=== PATIENT | female | born 1995 | race Asian ===

== ENCOUNTER 2023-10-08 15:45 | Outpatient (CLI) | payer BC, SELFPAY | END 2023-10-08 15:46 | disposition home or self-care (01) | PROVIDERS: Visit Provider Advanced Practice Midwife | DX: R53.83 Other fatigue (principal); Z31.69 Encounter for other general counseling and advice on procreation | CPT/HCPCS: 82306; 84443 ==

== ENCOUNTER 2024-05-11 10:52 | Outpatient (CLI) | payer BC, SELFPAY | END 2024-05-11 10:53 | disposition home or self-care (01) | PROVIDERS: Visit Provider Obstetrics & Gynecology | DX: O20.9 Hemorrhage in early pregnancy, unspecified (principal) | CPT/HCPCS: 84702; 86850; 86900; 86901 ==

== ENCOUNTER 2024-05-13 16:13 | Outpatient (CLI) | payer BC, SELFPAY | END 2024-05-13 16:14 | disposition home or self-care (01) | LOC: NFLDREF 05-14 08:29 | PROVIDERS: Visit Provider Obstetrics & Gynecology | DX: O20.9 Hemorrhage in early pregnancy, unspecified (principal) | CPT/HCPCS: 84702 ==

== ENCOUNTER 2024-08-07 07:59 | Outpatient (CLI) | payer BC, SELFPAY ==
--- NOTE | 2024-08-07 08:15 | CRLHL7_ITS ---
For Patients: As a result of the Century Cures Act, medical imaging exams and procedure reports are released immediately into your electronic medical record. You may view this report before your referring provider. If you have questions, please contact your health care provider. INDICATION: First trimester scan, establish dates. TECHNIQUE: Real-time larry-scale imaging of the pelvis was performed. FINDINGS: Sonographic imaging demonstrates a single living intrauterine gestation. The embryo demonstrates a regular cardiac rate measuring 167 beats per minute. The embryo`s crown-rump length measurement of 1.8 cm corresponds to a gestational age of 8 weeks 2 days with a sonographic due date of 03/17/2025 . There is a normal-appearing yolk sac. Right ovarian corpus luteum cyst. IMPRESSION: Normal first trimester OB ultrasound exam. Gestational age calculated at 8 weeks 2 days with a sonographic due date of 03/17/2025 . Dictated by Faiza Villa MD @ 08/07/2024 1:20:42 PM (Electronically Signed)
== END 2024-08-07 08:00 | disposition home or self-care (01) ==
PROVIDERS: Visit Provider Advanced Practice Midwife
DX: Z34.91 Encounter for supervision of normal pregnancy, unspecified, first trimester (principal); Z3A.08 8 weeks gestation of pregnancy
CPT/HCPCS: 76817; 83021; 86592; 86703; 86704; 86706; 86762; 86787; 86803; 86850; 86900; 86901; 87086; 87340; 87491; 87591

== ENCOUNTER 2024-10-29 12:57 | Outpatient (CLI) | payer BC, SELFPAY ==
--- NOTE | 2024-10-29 13:00 | CRLHL7_ITS ---
For Patients: As a result of the 21st Century Cures Act, medical imaging exams and procedure reports are released immediately into your electronic medical record. You may view this report before your referring provider. If you have questions, please contact your health care provider. OB ULTRASOUND SURVEY MIS by LMP: 03/17/2025. GA: 20 w, 1 d. INDICATION: anatomical survey. TECHNIQUE: Real time grayscale imaging of the fetus was performed. Evaluate anatomy. Transabdominal. position: Breech. Cervix: Visualized. Technique: Transabdominal. Length of closed cervix: 4.4 cm. Placenta/cord: Posterior. Technique: Transabdominal. Placenta tip to internal OS: 4.8 cm. Umbilical Cord: 3-vessel cord. Placenta insertion: Central. Amniotic Fluid: 5.1 cm SDP (greater than/equal to: 2- less than 8 cm). SURVEY: Observed Structures. Calvarium/Spine: Cerebellum: 2 cm, 20 w 5 d. Cisterna Magna: 4.4 mm. Nuchal Fold: 3.5 mm. Lateral Ventricle: 7.2 mm. CSP: Yes. Midline Falx: Yes. Choroid Plexus: Yes. Spine: Yes. Abdomen: Stomach: Yes. Abd Cord Insertion: Yes. Urinary Bladder: Yes. Kidneys: Yes. Diaphragm: Yes. Face: Nose/lips: Yes. Orbital view: Yes. Profile: Yes. Limbs: Upper Extremities: Yes. Lower Extremities: Yes. Hands: Yes. Feet: Yes. Vascular: 4-Chamber Heart: Yes. LVOT: Yes. RVOT: Yes. 3VV: Yes. 3VTV: Yes. BPD: 5 cm. 21 w, 2 d, 89 percent. HC: 18.2 cm. 20 w, 4 d, 63 percent. AC: 17.1 cm. 22 w, 0 d, 93 percent. FL: 3.1 cm. 19 w, 5 d, 27 percent. FL/AC ratio: 18.36 percent. HC/AC ratio: 1.07. heart rate: 149 bpm. age by this US: 20 w, 6 d. MIS by this US: 03/12/2025. EFW: 389 g. Weight: 0 lbs, 14 oz. Percentile by MIS: 87 percent. IMPRESSION: 1. Concordance of clinical and sonographic dating. 2. Normal anatomic survey. Marcus Velasco M.D. Diagnostic Radiologist [email or web address] [email or web address] [email or web address]/Dictated by: Marcus Velasco MD @ 10/30/2024 8:12:00 AM (Electronically Signed)
== END 2024-10-29 12:58 | disposition home or self-care (01) ==
LOC: US 12:58
PROVIDERS: Visit Provider Midwife
DX: Z34.92 Encounter for supervision of normal pregnancy, unspecified, second trimester (principal); Z3A.20 20 weeks gestation of pregnancy
CPT/HCPCS: 76805

== ENCOUNTER 2024-12-22 08:29 | Outpatient (CLI) | payer BC, SELFPAY | END 2024-12-22 08:30 | disposition home or self-care (01) | LOC: NFLDREF 12-24 18:42 | PROVIDERS: Visit Provider Advanced Practice Midwife | DX: Z34.83 Encounter for supervision of other normal pregnancy, third trimester (principal) | CPT/HCPCS: 86592 ==

== ENCOUNTER 2025-02-02 17:00 | Outpatient (CLI) | payer BC, SELFPAY | END 2025-02-02 17:01 | disposition home or self-care (01) | LOC: NFLDREF 02-04 02:40 | PROVIDERS: Visit Provider Advanced Practice Midwife | DX: Z34.93 Encounter for supervision of normal pregnancy, unspecified, third trimester (principal); Z3A.33 33 weeks gestation of pregnancy | CPT/HCPCS: 82728 ==

== ENCOUNTER 2025-02-18 15:05 | Outpatient (CLI) | payer BC, SELFPAY ==
[2025-02-19 14:23] LABS: Strep B DNA Probe POSITIVE (Negative)
[2025-02-19 14:34] LABS: Strep B Susceptibility Needed? No
== END 2025-02-18 15:06 | disposition home or self-care (01) ==
PROVIDERS: Visit Provider Advanced Practice Midwife
DX: Z34.83 Encounter for supervision of other normal pregnancy, third trimester (principal)
CPT/HCPCS: 87081; 87653

== ENCOUNTER 2025-03-20 21:13 | Inpatient (IN) | payer BC, SELFPAY ==
[2025-03-20 18:55] VITALS: PULSE 102; O2SAT 97
[2025-03-20 18:57] VITALS: BP 113/62; PULSE 93
[2025-03-20 19:08] VITALS: RESP 18; TEMP 36.8
[2025-03-20] MEDS: AMPICILLIN 2 GM in 0.9 % SODIUM CHLORIDE Mini-bag 100 ML IVPB (21:51)
[2025-03-20 22:01] VITALS: PULSE 79; O2SAT 96
[2025-03-20 22:02] LABS: Hematocrit 35.6 % (33.0-51.0); Hemoglobin* 12.1 gm/dL (12.0-16.0); Immature Granulocytes Pct Auto 0.6 %; Mean Corpuscular HGB Conc 34 gm/dL (32-36); Mean Corpuscular Hemoglobin 32 pg (26-34); Mean Corpuscular Volume 94 fL (80-100); RDW Coefficient of Variation % 12.1 % (11.5-15.5); Red Blood Count 3.80 m/uL (4.00-5.20); White Blood Count* 18.65 K/uL (4.50-11.00)
[2025-03-20 22:03] VITALS: BP 117/57; PULSE 82; RESP 16; TEMP 36.6
[2025-03-20 22:03] LABS: Immature Granulocytes Abs Auto 0.10 K/uL (0.00-0.30); Lymphocytes Absolute Auto 1.00 K/uL (0.90-2.90); Slide Review Reflex No
--- NOTE | 2025-03-20 22:48 | W.PM.LDBA ---
Subjective History of Present Illness Date Seen: 03/20/25 Narrative: Patient is being admitted to Labor and Delivery for spontaneous labor. She is a 29 year old at 40.3 weeks gestation. Her full history and physical was dictated by Jessica De Oliveira CNM on 02/25/25. Please see this for details. She began zane about every 5 minutes around 1630 and they have increased in intensity and frequency since. She Denies leaking fluid but is having some normal bloody show. She was initially 1cm but on recheck by the RN was found to be 2.5 cm. She is coping well and is supported by her partner and photogrammetric surveyor. Denies questions or concerns at this time. Discussed that we could consider AROM after her second dose of GBS prophylaxis antibiotics if desired or warranted. Specific Issues/Plans Partner: Julio Cesar Dempsey H&P: Completed by HARRY Moreno on 02/25/2025 # Anemia at 34 weeks, 10.6 Results returned after visit, recommended oral iron supplement # GBS positive ok with antibiotics in labor COVID: Declined Flu: Declined Tdap: Declined RSV: [] 32 week mental health: 01/19/2025, PHQ-9=2 CHE-7=5 Last pap: 02/21/22, NIL. pap PP Imagin10/29/24-1. Concordance of clinical and sonographic dating. 2. Normal anatomic survey. OB - Problem Based A/P Additional Plan (1) Pain during labor: Status: Acute (2) Anemia affecting : Status: Acute Plan ASSESSMENT:? at 40.3 weeks gestation? GBS positive? complicated by: anemia, GBS positive Labor type: spontaneous, early labor Blood type:?A+ ?? PLAN:? 1. Antibiotic prophylaxis treatment initiated per protocol? 2. Desires water . Consent signed. Hep C negative.? 3. Candidate for analgesia of choice. Planning unmedicated .? 4. Anticipate ? 5. Expectant management at this time.? 6. IV in place. 7. Intermittent auscultation after reactive tracing unless patient condition changes per policy. Delivery/Labor/Induction Plan Plan: expectant management OB Result Labs Blood Type: A (+) positive Rubella: immune RPR/VDLR: nonreactive GBS Status: positive HBsAG: negative OB Exam Physical Exam Vital signs: Temp Pulse Resp BP Pulse Ox 97.9 F 82 16 117/57 L 96 03/20/25 22:03 03/20/25 22:03 03/20/25 22:03 03/20/25 22:03 03/20/25 22:01 Narrative: Psychiatric:? Alert and oriented x3? HEENT:? Normocephalic, atraumatic? Neck:? Supple without adenopathy or thyromegaly? Lungs:? Clear to auscultation bilaterally? Heart:? Regular rate and rhythm, no murmur, rub or gallop? Abdomen:? Soft, nontender, and gravid? Extremities:? No edema or erythema? Detailed Labor and Delivery Exam Patient Gravid: yes Dilation (cm): 2 (2.5 per RN exam) Effacement (%): 90 Contraction Frequency: 2-3 Contraction intensity: Strong/Firm Fetus (Single) Amniotic Membrane Status: intact Heart Rate Baseline: 135 Monitor Accelerations: Present Monitor Decelerations: None Fpc Variability: Moderate (6-25)
[2025-03-21] VITALS (35 sets, daily range): BP systolic 91–199; BP diastolic 54–153; PULSE 68–121; RESP 16–22; TEMP 36.3–37.3; O2SAT 96–98
[2025-03-21] MEDS: AMPICILLIN 1 GM in 0.9 % SODIUM CHLORIDE Mini-bag 100 ML IVPB ×2 (02:00→06:00)
--- NOTE | 2025-03-21 07:17 | PM.OBPNL ---
Subjective Date Seen: 03/21/25 Narrative: Eliane has continues to labor and progress supported by her partner and hydro generation manager. She progressed to 8cm with a budging bag. She initially declined AROM and opted for position changes. She labored in the tub, on the toilet, on the bed and many different positions. After a couple of hours she requested another SVE was found to be 9cm. She desired AROM at this time. AROM produced moderate meconium stained fluid. Peds is aware and we discussed that if it progresses to thick stained fluid that this would rule her out of a water . Verbalized understanding. Encouraged continued position changes and coping mechanisms. Objective Vital Signs: Last Vital Signs Temp 97.9 F 03/21/25 06:44 Pulse 114 H 03/21/25 07:00 Resp 20 03/21/25 06:44 BP 117/60 03/21/25 07:00 Pulse Ox 97 03/21/25 07:09 Pelvic Exam Dilation (cm): 9 Effacement (%): 90 Station: 0 Contractions Monitor mode: Palpation Contraction Frequency: 3-5 Contraction pattern: Regular Contraction intensity: Strong/Firm Assessment Assessment: active labor Station: 0 Amniotic Membrane Status: AROM Tracing Comments: Intermittent auscultation 140's without decreases heard. Plan Plan: ASSESSMENT:? at 40.4 weeks gestation? GBS positive? complicated by: anemia, GBS positive, meconium stained amniotic fluid Labor type: spontaneous, active labor Blood type:?A+ ?? PLAN:? 1. Continue antibiotic prophylaxis treatment per protocol? 2. Desires water . Consent signed. Hep C negative.? 3. Candidate for analgesia of choice. Planning unmedicated .?Can continue to utilize hydrotherapy. Aware that if there is thick meconium she would no longer be a candidate for a waterbirth. 4. Anticipate ? 5. Expectant management at this time.? 6. IV in place. 7. Intermittent auscultation. Will switch to contniune monitoring if there is thick meconium fluid or FHR concerns.
[2025-03-21] MEDS: lidocaine HCL 2 % JELLY (TOP) STERILE 6 ML TOPICAL (10:26)
[2025-03-21] MEDS: LIDOCAINE 1 % PF 30 ML INJECTION (10:30)
--- NOTE | 2025-03-21 11:30 | W.PM.OBVAGDE ---
OB Procedure Vag Delivery Mother Details Mother Details: The patient is a 29 year-old, 2, Para 0, admitted on 03/20/25 at 40.4 Days gestation. : 2 Para: 1 Weeks Gestation: 40.4 Admission Date: 03/20/25 Additional Details Amniotic Membrane Status: AROM Amniotic Membrane Rupture Date: 03/21/25 Amniotic Membrane Rupture Time: 06:30 Amniotic Membrane Fluid Description: Meconium Stained (moderately stained ) and Brown Analgesia/Anesthesia Type: None Waterbirth: Yes Pitcoin: No Intrapartal Events: Labor Augmentation and Mod/Heavy Meconium Fluid Delivery augmentation: rupture of membranes Labor Onset: 01:30 Complete: 09:30 Pushin:30 Heart: heart tones during second stage by intermittent auscultation were in the 130-140's without decreases heard. Delivery Details Delivery Date: 03/21/25 Delivery Time: 09:50 Route of delivery: Gender: Male Infant Viability: Alive; Heart Rate Present Position at Delivery: OA Delivery Details: Patient was admitted for spontaneous labor and progressed with AROM augmentation. AROM noted at 0630 with moderately stained meconium fluid that did not progress to think stained at any time before delivery. Patient was involuntarily pushing with most contractions starting around 0800 but was encouraged and complied with not actively pushing. She was found to be complete and began actively pushing 0930. of a viable male at 0950 in hands and knees in the tub. Vertex delivered OA. No nuchal cord or shoulder. Compound right hand was noted with delivery of the shoulder. Body delivered slowly but easily and without incident. Infant passed through the mothers lags and to her abdomen with a vigorous cry. Cord was clamped and cut at > 5 minutes. APGARS were 8 at one minute and 9 at five minutes respectively. Mouth was bulb suctioned. Intact placenta with a 3 vessel cord delivered spontaneously at 1008. Fundus firm. 2nd degree laceration was identified and repaired in typical fashion. QBL 300 cc. Mother and baby stable; mother plans to breastfeed. Infant weight 9lb 1oz. 1 Minute Interval Total Score: 8 5 Minute Interval Total Score: 9 Additional Details Shoulder Dystocia: No Placenta Delivery Time: 10:08 Placental Delivery Description: Spontaneous Delivery repair: Vicryl Procedure Done: Global Blood Loss: 300 Laceration: Perineal - 2nd Degree Episiotomy Description: None Blood Loss Measurement Type: QBL Bakri Used: No Sponge/Need Count Correct: Yes Cord Vessel Description: 3 Vessels Event Summary Status: Mother and were stable after delivery. Disposition: floor
[2025-03-21] MEDS: IBUPROFEN 600 MG TABLET PO (19:04)
[2025-03-22 03:29] VITALS: BP 106/69; PULSE 82; RESP 18; O2SAT 97
[2025-03-22 06:36] LABS: Hemoglobin* 9.8 gm/dL (12.0-16.0)
[2025-03-22 07:34] VITALS: BP 99/63; PULSE 95; RESP 16; TEMP 36.7; O2SAT 98
[2025-03-22] MEDS: DOCUSATE SODIUM 100 MG CAPSULE PO (09:10)
[2025-03-22] MEDS: IBUPROFEN 600 MG TABLET PO (09:10)
[2025-03-22 14:33] VITALS: BP 99/61; PULSE 90; RESP 16; TEMP 36.6; O2SAT 98
--- NOTE | 2025-03-22 14:38 | PM.OBPNVD1 ---
OB - PN:Subj Subjective Date Seen: 03/22/25 Narrative: Eliane is a 29 year old who was admitted for and proceeded to have a vaginal ? with a 2nd degree laceration that was repaired.The patient feels well.? The pain is well controlled with current medications.? She has no new complaints.? Urinary output is adequate and she is voiding without difficulty.? Has a good appetite, is tolerating a general diet, is passing flatus, and has not had a bowel movement.? Has scant amount of rubra lochia.? She is ambulating well. She is and reports it is going well.? OB - PN: Obj Exam Physical Exam: Vital signs: Temp Pulse Resp BP Pulse Ox O2 Del Method 98.0 F 95 16 99/63 98 Room Air 03/22/25 07:34 03/22/25 07:34 03/22/25 07:34 03/22/25 07:34 03/22/25 07:34 03/22/25 07:34 Narrative: GENERAL APPEARANCE:? normal affect, alert, no distress MOOD:? appropriate CHEST:? clear to auscultation HEART:? regular rate and rhythm ABDOMEN:? soft, non-tender the uterine fundus is 2 finger breadths below Umbilicus, Midline and is appropriate for the stage of recovery. PERINEUM:? mild deferred due to current BF EXTREMITIES:? normal and mild edema OB - PN: Obj Data Labs Labs: Laboratory Results - last 24 hr 03/22/25 06:23 Hgb 9.8 L OB - PN: A/P Delivery Assessment and Plan (1) (normal spontaneous vaginal delivery): Status: Acute (2) care and examination of lactating mother: Status: Acute Plan Comments: PP day #1 Routine care May see as desired Anticipate discharge 03/23/25
[2025-03-22] MEDS: ACETAMINOPHEN 500 MG TABLET 1000 MG PO (14:56)
[2025-03-22 20:00] VITALS: BP 90/61; PULSE 88; RESP 16; TEMP 37.1; O2SAT 98
[2025-03-23] MEDS: IBUPROFEN 600 MG TABLET PO ×2 (00:22→07:50)
[2025-03-23 04:00] VITALS: BP 99/68; PULSE 76; RESP 16; TEMP 36.7; O2SAT 98
--- NOTE | 2025-03-23 07:15 | PM.OBDSVD1 ---
DS: Providers Provider Date Seen: 03/23/25 Date of admission: 03/20/25 21:13 Primary care physician: Not a Local Provider Admitting Clinician: Devika Chan CNM Attending Physician on discharge: Carmen De Oliveira APRN, CNM DS: Diagnosis Discharge Diagnosis (1) care and examination of lactating mother: Status: Acute (2) (normal spontaneous vaginal delivery): Status: Acute (3) Anemia affecting : Status: Acute Exam Narrative: Exam Narrative: GENERAL APPEARANCE:? normal affect, alert, no distress MOOD:? appropriate CHEST:? clear to auscultation HEART:? regular rate and rhythm ABDOMEN:? soft, non-tender the uterine fundus is At Umbilicus, Midline and is appropriate for the stage of recovery. PERINEUM:? mild edema of the perineum, there is a Perineal Laceration, that is healing well. EXTREMITIES:? normal and no edema Const: Vital Signs, click to edit/add: Vital Signs - 24 hr 03/22/25 07:34 03/22/25 14:33 03/22/25 20:00 Temperature 98.0 F 97.8 F 98.8 F Pulse Rate [Pulse Oximeter] 95 90 88 Respiratory Rate 16 16 16 Blood Pressure [Ri ght Arm] 99/63 99/61 90/61 Pulse Oximetry 98 98 98 Oxygen Delivery Me thod Room Air Room Air Room Air 03/23/25 04:00 Temperature 98.0 F Pulse Rate [Pulse Oximeter] 76 Respiratory Rate 16 Blood Pressure [Ri ght Arm] 99/68 Pulse Oximetry 98 Oxygen Delivery Me thod Room Air Documenting provider has reviewed patient's vital signs: yes OB - DS: Summary Hospital Course Hospital Course: Eliane is a 29 y.o. G 2 P 1 who was admitted to [facility] & [facility] for spontaneous onset of labor. ?She had a NVD that was uncomplicated. The patient feels well. ?The pain is well controlled with current medications. ?She has no new complaints. ?She is breast feeding and reports things are going well. the patient has done well.? Vitals have been stable.? She has remained afebrile.? Has a good appetite, is tolerating a general diet. ?She is voiding without difficulty.? She is passing gas and has not had a bowel movement.? She is ambulating and denies any dizziness.? Has small amount of rubra lochia. Problems: Anemia Discharge home with baby.? Follow up in 2 weeks and 6 weeks.? , may see if needed? Hgb 9.8. Iron supplement ordered orally every other day?? For pain control of perineum, breast and pelvic pain, take 600 mg Ibuprofen every 6 hours as needed by mouth or 1000 mg acetaminophen (Tylenol) every 6 hours by mouth as needed. You can alternate these so you are taking something every 3 hours as needed. A heating pad can also be used for your abdomen or breasts. You may also take docusate sodium up to twice daily to soften your stools and help to prevent constipation. You may wean off of it when your stools return to normal.? Peripartum Data delivery method: Vaginal Laceration description: Perineal - 2nd Degree complications: none Infant Gender: Male Discharge Plan: Home Status at Discharge Functional status at discharge: independent ambulation Overall status at discharge: patient is progressing back to baseline Time Spent with Patient Time attestation: Total time spent providing and/or coordinating discharge services: Time spent: Less than 30 minutes Discharge Plan Discharge Disposition: Home, Self-Care Date of Admission: 03/20/25 21:13 Attending Provider on Discharge: Carmen De Oliveira Primary Care Provider: Provider,Not a Local Condition: Stable Anticipated Discharge Date/Time: 03/23/25 12:00 Discharge Medications: New ibuprofen 600 mg Tablet 600 mg PO Q6H PRNQty: 60 0RF docusate sodium 100 mg Capsule 100 mg PO DAILY Qty: 0 0RF acetaminophen 500 mg Tablet 1,000 mg PO Q6H PRNQty: 0 0RF Continued cholecalciferol (vitamin D3) 50 mcg (2,000 unit) capsule 50 mcg PO QDAY [id number] 3 fatty no.1 27-1-300 mg capsule PO triamcinolone acetonide 0.1 % cream 1 applic topical BID PRN (Reason: itching) Vitron-C 65 mg iron- 125 mg tablet,delayed release (DR/EC) 1 tab PO QDAY Discharge Orders: Discharge Order (Routine); Ordered 03/23/25 Ordered By: Carmen De Oliveira Patient Education: OB Over the Counter Medication Information, OB Vaginal/Breast Feeding Additional Instructions: Discharge instructions were reviewed with the patient including signs and symptoms of infection and home going medications Nothing vaginally for 6 weeks: no tampons or intercourse Off Work or School for 6 weeks 2-week visit: discuss infant feeding concerns, review control options and screen for anxiety/depression. 6-week visit for an annual exam. consultation services are available to all mothers and babies for the first year after delivery.? To make an appointment, please call [phone]. Activity Level: Activity as Tolerated and No strenuous activity Discharge Diet: Regular Follow Up Appointments: [facility] [Provider Group] Forms: Patient Belongings, MyHealth Info Instructions
[2025-03-23 07:43] VITALS: BP 100/63; PULSE 81; RESP 16; TEMP 36.7; O2SAT 97
[2025-03-23] MEDS: DOCUSATE SODIUM 100 MG CAPSULE PO (07:49)
== END 2025-03-23 13:31 | disposition home or self-care (01) | DRG 560 ==
LOC: OB OUT 21:14 → OB 03-22 12:02
PROVIDERS: Admitting Provider Advanced Practice Midwife; Visit Provider Advanced Practice Midwife
DX: O48.0 Post-term pregnancy (principal); O99.824 Streptococcus B carrier state complicating childbirth; O77.0 Labor and delivery complicated by meconium in amniotic fluid; O70.1 Second degree perineal laceration during delivery; O99.02 Anemia complicating childbirth; D64.9 Anemia, unspecified; Z37.0 Single live birth; Z3A.40 40 weeks gestation of pregnancy
CPT/HCPCS: 36415; 85018; 85025; 86592; 86850; 86900; 86901; 87081; 87653; A9270; J0290; J2003

== ENCOUNTER 2025-05-03 13:42 | Outpatient (CLI) | payer BC, SELFPAY ==
[2025-05-03 18:30] LABS: Bacterial Vaginosis* POSITIVE (Negative); Candida glab/krus NOT DETECTED (No Detected)
[2025-05-05 22:44] LABS: HPV Source Cervical
[2025-05-08 18:49] LABS: Pap Test Digital Imaging Done
== END 2025-05-03 13:43 | disposition home or self-care (01) ==
PROVIDERS: Visit Provider Advanced Practice Midwife
DX: Z12.4 Encounter for screening for malignant neoplasm of cervix (principal); N93.9 Abnormal uterine and vaginal bleeding, unspecified
CPT/HCPCS: 81513; 87481; 87624; 87625; 87661; 88141; 88142; 88175